=== PATIENT | female | born 1955 | race Asian ===

== ENCOUNTER 2017-08-17 17:26 | Observation (INO) | payer OTHER ==
[2017-08-17 17:26] VITALS: BP 146/70; PULSE 52; RESP 24; TEMP 98.3; O2SAT 99
[2017-08-17] MEDS ORDERED: SODIUM CHLOR 0.9% 1000 ML INJ 1,000 ML IV SCH (19:13)
[2017-08-17] MEDS ORDERED: ONDANSETRON HCL 4 MG/2 ML VIAL IVP ONE (19:15)
[2017-08-17] MEDS ORDERED: MORPHINE SULFATE 4 MG/ML INJ IV PUSH ONE ×2 (19:15→20:45)
--- NOTE | 2017-08-17 19:49 | PD ---
HPI Chief Complaint: Flank/Kidney Pain Time Seen by Provider: 18:53 Travel History International Travel<30 days: No Contact w/Intl Traveler<30days: No Traveled to known affect area: No History of Present Illness HPI 62-year-old female that presents to the ED for evaluation of right flank pain. Per patient she has a history of kidney stones and she was told about 3 months ago that she had multiple kidney stones on her right and left kidney. She passed a stone at the time and she has had no issues until today when she developed severe pain with nausea. She states that she has seen some blood in her urine. She denies any chest pain or shortness of breath. No actual vomiting. She denies any injuries. Per patient the pain came on all of a sudden. She states that he feels similar to her kidney stones. Patient speaks Mandarin but she comes with a friend who translates for her as well as interpreting services were use. Patient states her pain is severe 8 out of 10. States mainly on the right side but also points to the left upper abdomen. No bowel movement issues. PFSH Social History Alcohol Use: No Tobacco Use: No Substance Use: No Allergies-Medications (Allergen,Severity, Reaction): Coded Allergies: No Known Allergies (Unverified , 08/17/17) Reported Meds & Prescriptions Reported Meds & Active Scripts Active Active Prescriptions or Reported Medications Unobtainable Review of Systems Except as stated in HPI: all other systems reviewed are Neg Physical Exam Narrative GENERAL: SKIN: Warm and dry. HEAD: Atraumatic. Normocephalic. EYES: Pupils equal and round. No scleral icterus. No injection or drainage. ENT: No nasal bleeding or discharge. Mucous membranes pink and moist. Tongue is midline. No uvula deviation. NECK: Trachea midline. No JVD. CARDIOVASCULAR: Regular rate and rhythm. No murmurs, S3, S4. RESPIRATORY: No accessory muscle use. Clear to auscultation. Breath sounds equal bilaterally. GASTROINTESTINAL: Abdomen soft, non-tender, nondistended. Hepatic and splenic margins not palpable. MUSCULOSKELETAL: Extremities without clubbing, cyanosis, or edema. No obvious deformities. Patient has a possible pain on the right flank as well as the right upper abdomen. Also the right lower abdomen. Full range of motion of the upper and lower extremities bilaterally. 2+ pulses bilaterally. NEUROLOGICAL: Awake and alert. No obvious cranial nerve deficits. Motor grossly within normal limits. Five out of 5 muscle strength in the arms and legs. Normal speech. PSYCHIATRIC: Appropriate mood and affect; insight and judgment normal. Data Data Last Documented VS Vital Signs Date Time Temp Pulse Resp B/P (MAP) Pulse Ox O2 Delivery O2 Flow Rate FiO2 08/17/17 20:03 16 08/17/17 20:03 98 Room Air 08/17/17 17:26 98.3 52 Orders Orders Complete Blood Count With Diff (08/17/17 19:13) Comprehensive Metabolic Panel (08/17/17 19:13) Prothrombin Time / Inr (Pt) (08/17/17 19:13) Act Partial Throm Time (Ptt) (08/17/17 19:13) Lipase (08/17/17 19:13) Urinalysis - C+S If Indicated (08/17/17 19:13) Magnesium (Mg) (08/17/17 19:13) Ct Abd/Pel W/O Iv Contrast (08/17/17 ) Lactic Acid (08/17/17 19:13) Iv Access Insert/Monitor (08/17/17 19:13) Ecg Monitoring (08/17/17 19:13) Oximetry (08/17/17 19:13) Morphine Inj (Morphine Inj) (08/17/17 19:15) Ondansetron Inj (Zofran Inj) (08/17/17 19:15) Sodium Chlor 0.9% 1000 Ml Inj (Ns 1000 M (08/17/17 19:13) Morphine Inj (Morphine Inj) (08/17/17 20:45) Npo After Midnight W/ Po Meds (08/18/17 Breakfast) Abdomen, Kub Only (08/18/17 06:00) Tamsulosin (Flomax) (08/18/17 09:00) Strain Urine PRN (08/17/17 21:22) Ketorolac Inj (Toradol Inj) (08/18/17 00:00) Admit Order (Ed Use Only) (08/17/17 21:51) Labs Laboratory Tests Test 08/17/17 20:05 White Blood Count 12.8 TH/MM3 Red Blood Count 4.20 MIL/MM3 Hemoglobin 12.3 GM/DL Hematocrit 36.7 % Mean Corpuscular Volume 87.5 FL Mean Corpuscular Hemoglobin 29.4 PG Mean Corpuscular Hemoglobin Concent 33.6 % Red Cell Distribution Width 13.4 % Platelet Count 205 TH/MM3 Mean Platelet Volume 9.4 FL Neutrophils (%) (Auto) 81.4 % Lymphocytes (%) (Auto) 10.3 % Monocytes (%) (Auto) 6.5 % Eosinophils (%) (Auto) 1.4 % Basophils (%) (Auto) 0.4 % Neutrophils # (Auto) 10.4 TH/MM3 Lymphocytes # (Auto) 1.3 TH/MM3 Monocytes # (Auto) 0.8 TH/MM3 Eosinophils # (Auto) 0.2 TH/MM3 Basophils # (Auto) 0.0 TH/MM3 CBC Comment DIFF FINAL Differential Comment Prothrombin Time 10.7 SEC Prothromb Time International Ratio 1.0 RATIO Activated Partial Thromboplast Time 25.7 SEC Blood Urea Nitrogen 28 MG/DL Creatinine 0.93 MG/DL Random Glucose 120 MG/DL Total Protein 8.0 GM/DL Albumin 4.2 GM/DL Calcium Level 9.9 MG/DL Magnesium Level 2.2 MG/DL Alkaline Phosphatase 110 U/L Aspartate Amino Transf (AST/SGOT) 17 U/L Alanine Aminotransferase (ALT/SGPT) 34 U/L Total Bilirubin 0.3 MG/DL Sodium Level 141 MEQ/L Potassium Level 3.5 MEQ/L Chloride Level 108 MEQ/L Carbon Dioxide Level 23.8 MEQ/L Anion Gap 9 MEQ/L Estimat Glomerular Filtration Rate 61 ML/MIN Lactic Acid Level 1.4 mmol/L Lipase 131 U/L MDM Medical Decision Making Medical Screen Exam Complete: Yes Emergency Medical Condition: Yes Medical Record Reviewed: Yes Interpretation(s) CBC & BMP Diagram 08/17/17 20:05 Total Protein 8.0, Albumin 4.2, Calcium Level 9.9, Magnesium Level 2.2, Alkaline Phosphatase 110, Aspartate Amino Transf (AST/SGOT) 17, Alanine Aminotransferase (ALT/SGPT) 34, Total Bilirubin 0.3 Last Impressions Abdomen/Pelvis CT 08/17/17 0000 Signed Impressions: Service Date/Time: Thursday, August 17, 2017 19:45 - CONCLUSION: 1. Moderate left hydronephrosis and dilatation of the left ureter down to level of the mid pelvis at site of one or several adjacent calculi. 2. Tiny nonobstructing right renal calculi. Eber Bartlett MD Differential Diagnosis Kidney stone versus pyelonephritis versus abdominal pain versus obstruction versus sepsis versus nausea and vomiting Narrative Course 62-year-old female that presents to the ED for evaluation of right flank pain. Patient was properly examined and was found to have signs and symptoms which appear to be more consistent with kidney stone. She does have a history of kidney stones and was told that she had kidney stones or kidney 3 months ago that might give her issues. Per patient it feels similar. Patient only speaks Mandarin and has a friend who translates for her as well as cyber defense incident responder services were used. Patient was started IV, labs and imaging were ordered. Patient was given pain medications and IV fluids. Imaging and labs show a millimeter stone to the left kidney. Hydronephrosis noted as well. Patient does have a leukocytosis. Patient does have what appears to be elevated BUN likely secondary from the kidney stone. Case was discussed in my attending Dr. Beasley who recommends urology consult. I spoke with Dr. Blackwell who agrees that he will see the patient as a consult. Case discussed with Dr. Plaza who agrees to admission. Diagnosis Primary Impression: Kidney stone on left side Additional Impression: Hydronephrosis due to obstruction of ureter Admitting Information Admitting Physician Requests: Observation Scripts Unable to Obtain Active Prescriptions or Reported Meds Valdemar Mtz Aug 17, 2017 19:48
[2017-08-17 20:03] VITALS: RESP 16; O2SAT 98
--- NOTE | 2017-08-17 20:05 | RADRPT ---
EXAM DATE/TIME: 08/17/2017 19:45 [facility] COMPARISON: No previous studies available for comparison. INDICATIONS : Bilateral flank pain. ORAL CONTRAST: No oral contrast ingested. RADIATION DOSE: 3.46 CTDIvol (mGy) MEDICAL HISTORY : Renal calculi. SURGICAL HISTORY : None. ENCOUNTER: Initial ACUITY: 1 day PAIN SCALE: 8/10 LOCATION: Bilateral flank abdomen TECHNIQUE: Volumetric scanning of the abdomen and pelvis was performed. Using automated exposure control and ad justment of the mA and/or kV according to patient size, radiation dose was kept as low as reasonably achievable to obtain optimal diagnostic quality images. DICOM format image data is available electro nically for review and comparison. FINDINGS: LOWER LUNGS: The visualized lower lungs are clear. LIVER: Homogeneous density without lesion. There is no dilation of the biliary tree. No calcified gallston es. SPLEEN: Normal size without lesion. PANCREAS: Within normal limits. KIDNEYS: The right kidney is normal in size and shape with several tiny less than 1 mm calculi. The left kidne y is enlarged with moderate hydronephrosis and dilatation of the left ureter down to the level of the mid pelvis. There is mild surrounding inflammatory change. There are several apparent adjacent calcu li versus a lobular calcification. In aggregate this measures up to approximately 8 x 6 mm in greates t diameter. The right ureter is unremarkable. ADRENAL GLANDS: Within normal limits. VASCULAR: There is no aortic aneurysm. BOWEL/MESENTERY: The stomach, small bowel, and colon demonstrate no acute abnormality. There is no free intraperitone al air or fluid. ABDOMINAL WALL: Within normal limits. RETROPERITONEUM: There is no lymphadenopathy. BLADDER: No wall thickening or mass. REPRODUCTIVE: Within normal limits. INGUINAL: There is no lymphadenopathy or hernia. MUSCULOSKELETAL: Within normal limits for patient age. CONCLUSION: 1. Moderate left hydronephrosis and dilatation of the left ureter down to level of the mid pelvis at site of one or several adjacent calculi. 2. Tiny nonobstructing right renal calculi. Eber Bartlett MD on August 17, 2017 at 20:00 Board Certified Radiologist. This report was verified electronically.
[2017-08-17 20:41] LABS: APTT (PATIENT) 25.7 SEC (24.3-30.1); PROTHROMBIN TIME - PATIENT 10.7 SEC (9.8-11.6)
[2017-08-17 20:45] LABS: AUTOMATED NEUTROPHIL # 10.4 TH/MM3 (1.8-7.7); BASOPHIL % 0.4 % (0.0-2.0); EOSINOPHIL # 0.2 TH/MM3 (0-0.4); EOSINOPHIL % 1.4 % (0.0-4.0); HEMATOCRIT 36.7 % (35.0-46.0); HEMO FLAGS DIFF FINAL; LYMPH % 10.3 % (9.0-44.0); LYMPHOCYTE # 1.3 TH/MM3 (1.0-4.8); MEAN CELL VOLUME 87.5 FL (80.0-100.0); MEAN CORPUSCULAR HEMOGLOBIN 29.4 PG (27.0-34.0); MEAN CORPUSCULAR HGB CONC 33.6 % (32.0-36.0); MONO % 6.5 % (0.0-8.0); NEUT % 81.4 % (16.0-70.0); PLATELET COUNT 205 TH/MM3 (150-450); RED CELL DISTRIBUTION WIDTH 13.4 % (11.6-17.2); WHITE BLOOD COUNT 12.8 TH/MM3 (4.0-11.0)
[2017-08-17 21:06] LABS: ANION GAP 9 MEQ/L (5-15); AST (GOT) 17 U/L (15-37); BICARBONATE 23.8 MEQ/L (21.0-32.0); BLOOD UREA NITROGEN 28 MG/DL (7-18); CHLORIDE 108 MEQ/L (98-107); GLOMERULAR FILTRATION RATE 61 ML/MIN (>89); MAGNESIUM 2.2 MG/DL (1.5-2.5); POTASSIUM 3.5 MEQ/L (3.5-5.1); SODIUM (NA) 141 MEQ/L (136-145)
[2017-08-17 21:09] LABS: ALKALINE PHOSPHATASE 110 U/L (45-117); ALT (GPT) 34 U/L (10-53); TOTAL BILIRUBIN ADULT 0.3 MG/DL (0.2-1.0)
--- NOTE | 2017-08-17 22:13 | HHI.HP ---
HPI Service [facility] Hospitalists Primary Care Physician Ad Pearson MD Admission Diagnosis acute left kidney stone with hydronephrosis Chief Complaint: pain Travel History International Travel<30 Days: No Contact w/Intl Traveler <30 Da: No Traveled to Known Affected Are: No History of Present Illness Pt is 62 yo Mandarin speaking women who presents with severe abdomen and flank pain. She follows with dr Blackwell and has known kidney stones. She had CT a/p in ED and shows left hydroureter and distal stone or stones up to 8-10mm in size. Had some n/v. No fever or chills. We used multiple interpreting services to get history. Review of Systems Other abdomen and flank pain Past Family Social History Past Medical History remote heart attack and cva in [place] hx cecal surgery nephrolithiasis Reported Medications Denies prescribed meds uses various somali herbs. Allergies: Coded Allergies: No Known Allergies (Unverified , 08/17/17) Family History NC Social History no etoh/tob Physical Exam Vital Signs heart reg lung cta abd /snt ext no edema Vital Signs Date Time Temp Pulse Resp B/P (MAP) Pulse Ox O2 Delivery O2 Flow Rate FiO2 08/17/17 20:03 16 08/17/17 20:03 16 98 Room Air 08/17/17 17:26 98.3 52 24 146/70 (95) 99 Room Air Laboratory Laboratory Tests Test 08/17/17 20:05 White Blood Count 12.8 Red Blood Count 4.20 Hemoglobin 12.3 Hematocrit 36.7 Mean Corpuscular Volume 87.5 Mean Corpuscular Hemoglobin 29.4 Mean Corpuscular Hemoglobin Concent 33.6 Red Cell Distribution Width 13.4 Platelet Count 205 Mean Platelet Volume 9.4 Neutrophils (%) (Auto) 81.4 Lymphocytes (%) (Auto) 10.3 Monocytes (%) (Auto) 6.5 Eosinophils (%) (Auto) 1.4 Basophils (%) (Auto) 0.4 Neutrophils # (Auto) 10.4 Lymphocytes # (Auto) 1.3 Monocytes # (Auto) 0.8 Eosinophils # (Auto) 0.2 Basophils # (Auto) 0.0 CBC Comment DIFF FINAL Differential Comment Prothrombin Time 10.7 Prothromb Time International Ratio 1.0 Activated Partial Thromboplast Time 25.7 Blood Urea Nitrogen 28 Creatinine 0.93 Random Glucose 120 Total Protein 8.0 Albumin 4.2 Calcium Level 9.9 Magnesium Level 2.2 Alkaline Phosphatase 110 Aspartate Amino Transf (AST/SGOT) 17 Alanine Aminotransferase (ALT/SGPT) 34 Total Bilirubin 0.3 Sodium Level 141 Potassium Level 3.5 Chloride Level 108 Carbon Dioxide Level 23.8 Anion Gap 9 Estimat Glomerular Filtration Rate 61 Lactic Acid Level 1.4 Lipase 131 Result Diagram: 08/17/17200408/17/172004 Caprini VTE Risk Assessment Caprini VTE Risk Assessment: Mod/High Risk (score >= 2) Caprini Risk Assessment Model Point Value = 1 Point Value = 2 Point Value = 3 Point Value = 5 Age 41-60 Minor surgery BMI > 25 kg/m2 Swollen legs Varicose veins or History of unexplained or recurrent spontaneous Oral contraceptives or hormone replacement Sepsis (< 1 month) Serious lung disease, including pneumonia (< 1 month) Abnormal pulmonary function Acute myocardial infarction Congestive heart failure (< 1 month) History of inflammatory bowel disease Medical patient at bed rest Age 61-74 Arthroscopic surgery Major open surgery (> 45 min) Laparoscopic surgery (> 45 min) Malignancy Confined to bed (> 72 hours) Immobilizing plaster cast Central venous access Age >= 75 History of VTE Family history of VTE Factor V Leiden Prothrombin [id number] Lupus anticoagulant Anticardiolipin antibodies Elevated serum homocysteine Heparin-induced thrombocytopenia Other congenital or acquired thrombophilia Stroke (< 1 month) Elective arthroplasty Hip, pelvis, or leg fracture Acute spinal cord injury (< 1 month) Prophylaxis Regimen Total Risk Factor Score Risk Level Prophylaxis Regimen 0-1 Low Early ambulation 2 Moderate Order ONE of the following: *Sequential Compression Device (SCD) *Heparin 5000 units SQ BID 3-4 Higher Order ONE of the following medications: *Heparin 5000 units SQ TID *Enoxaparin/Lovenox 40 mg SQ daily (WT < 150 kg, CrCl > 30 mL/min) *Enoxaparin/Lovenox 30 mg SQ daily (WT < 150 kg, CrCl > 10-29 mL/min) *Enoxaparin/Lovenox 30 mg SQ BID (WT < 150 kg, CrCl > 30 mL/min) AND/OR *Sequential Compression Device (SCD) 5 or more Highest Order ONE of the following medications: *Heparin 5000 units SQ TID (Preferred with Epidurals) *Enoxaparin/Lovenox 40 mg SQ daily (WT < 150 kg, CrCl > 30 mL/min) *Enoxaparin/Lovenox 30 mg SQ daily (WT < 150 kg, CrCl > 10-29 mL/min) *Enoxaparin/Lovenox 30 mg SQ BID (WT < 150 kg, CrCl > 30 mL/min) AND *Sequential Compression Device (SCD) Assessment and Plan Problem List: (1) Kidney stone on left side ICD Codes: N20.0 - Calculus of kidney Status: Acute Plan: Pt with left sides nephrolithiasis and obstructing kidney stone(s) urology consulted. known to Dr Rishi vazquez toradol ivf plan for cysto tomorrow. (2) Hydronephrosis due to obstruction of ureter ICD Codes: N13.2 - Hydronephrosis with renal and ureteral calculous obstruction Status: Acute Valdez Estrada MD Aug 17, 2017 22:13
[2017-08-17] MEDS ORDERED: ONDANSETRON HCL 4 MG/2 ML VIAL IV PUSH PRN (22:30)
[2017-08-17] MEDS ORDERED: HYDROmorphone HCL PF 1 MG/ML VIAL IV PUSH PRN (22:30)
[2017-08-17 22:42] LABS: BLOOD, URINE LARGE (NEG); GLUCOSE,URINE NEG (NEG); KETONE, URINE NEG (NEG); MUCUS URINE FEW /lpf (OCC); NITRITE,URINE NEG (NEG); SQUAMOUS EPITHELIAL CELL URINE <1 /hpf (0-5); URINE COLOR YELLOW (YELLW/STRAW)
[2017-08-17 22:44] LABS: COMMENT (UR) CULT NOT INDICATED; CULTURE IF INDICATED CULT NOT INDICATED
[2017-08-17] MEDS: NS + KCL 20 MEQ INJ 1,000 ML IV SCH (23:21)
[2017-08-17 23:47] VITALS: BP 118/68; PULSE 48; RESP 16; TEMP 98.2; O2SAT 98
[2017-08-18] MEDS: KETOROLAC TROMETHAMINE 30 MG/ML (IVP) VIAL IV PUSH SCH ×2 (00:32→05:51)
--- NOTE | 2017-08-18 06:44 | RADRPT ---
EXAM DATE/TIME: 08/18/2017 05:36 [facility] COMPARISON: CT ABDOMEN & PELVIS W/O CONTRAST, August 17, 2017, 19:45. INDICATIONS : Bilateral renal stones. MEDICAL HISTORY : Renal calculi. SURGICAL HISTORY : None. ENCOUNTER: Subsequent ACUITY: 2 days PAIN SCORE: 6/10 LOCATION: Bilateral flank FINDINGS: No dilated loops of small large bowel. No calcification seen projected over either kidney or a long either flank. The 8mm aggregate of calcified stones seen on recent CT scan the superimposed upon the left sacrum; no calcification is seen in this area on conventional radiographs. CONCLUSION: 8mm aggregate of calcifications in the distal left ureter seen on prior CT are not discernible on tod ay's exam. Please note that the prior renal stones measured less than [address] and would not be ex pected to be discernible by conventional radiographs. Peter Kearney MD on August 18, 2017 at 6:37 Board Certified Radiologist. This report was verified electronically.
[2017-08-18] MEDS: NS + KCL 20 MEQ INJ 1,000 ML IV SCH ×2 (07:50→14:30)
[2017-08-18 08:57] VITALS: BP 114/65; PULSE 54; RESP 18; TEMP 98.1; O2SAT 97
[2017-08-18] MEDS ORDERED: TAMSULOSIN HCL 0.4 MG CAP PO SCH (09:00)
--- NOTE | 2017-08-18 09:03 | HHI.PR ---
Subjective Remarks Pts pain is better controlled with the Toradol Pt reportedly has not urinated much overnight or yet this morning. No nausea/vomiting Afebrile. Objective Vitals Vital Signs Date Time Temp Pulse Resp B/P (MAP) Pulse Ox O2 Delivery O2 Flow Rate FiO2 08/18/17 08:57 98.1 54 18 114/65 (81) 97 08/18/17 07:50 22 08/17/17 23:47 98.2 48 16 118/68 (85) 98 08/17/17 23:22 08/17/17 20:03 16 08/17/17 20:03 16 98 Room Air 08/17/17 17:26 98.3 52 24 146/70 (95) 99 Room Air Result Diagram: 08/17/17200408/17/172004 Other Results Laboratory Tests Test 08/17/17 20:05 08/17/17 21:25 White Blood Count 12.8 TH/MM3 Red Blood Count 4.20 MIL/MM3 Hemoglobin 12.3 GM/DL Hematocrit 36.7 % Mean Corpuscular Volume 87.5 FL Mean Corpuscular Hemoglobin 29.4 PG Mean Corpuscular Hemoglobin Concent 33.6 % Red Cell Distribution Width 13.4 % Platelet Count 205 TH/MM3 Mean Platelet Volume 9.4 FL Neutrophils (%) (Auto) 81.4 % Lymphocytes (%) (Auto) 10.3 % Monocytes (%) (Auto) 6.5 % Eosinophils (%) (Auto) 1.4 % Basophils (%) (Auto) 0.4 % Neutrophils # (Auto) 10.4 TH/MM3 Lymphocytes # (Auto) 1.3 TH/MM3 Monocytes # (Auto) 0.8 TH/MM3 Eosinophils # (Auto) 0.2 TH/MM3 Basophils # (Auto) 0.0 TH/MM3 CBC Comment DIFF FINAL Differential Comment Prothrombin Time 10.7 SEC Prothromb Time International Ratio 1.0 RATIO Activated Partial Thromboplast Time 25.7 SEC Blood Urea Nitrogen 28 MG/DL Creatinine 0.93 MG/DL Random Glucose 120 MG/DL Total Protein 8.0 GM/DL Albumin 4.2 GM/DL Calcium Level 9.9 MG/DL Magnesium Level 2.2 MG/DL Alkaline Phosphatase 110 U/L Aspartate Amino Transf (AST/SGOT) 17 U/L Alanine Aminotransferase (ALT/SGPT) 34 U/L Total Bilirubin 0.3 MG/DL Sodium Level 141 MEQ/L Potassium Level 3.5 MEQ/L Chloride Level 108 MEQ/L Carbon Dioxide Level 23.8 MEQ/L Anion Gap 9 MEQ/L Estimat Glomerular Filtration Rate 61 ML/MIN Lactic Acid Level 1.4 mmol/L Lipase 131 U/L Urine Color YELLOW Urine Turbidity HAZY Urine pH 6.0 Urine Specific [place] 1.017 Urine Protein 30 mg/dL Urine Glucose (UA) NEG mg/dL Urine Ketones NEG mg/dL Urine Occult Blood LARGE Urine Nitrite NEG Urine Bilirubin NEG Urine Urobilinogen LESS THAN 2.0 MG/DL Urine Leukocyte Esterase NEG Urine RBC 164 /hpf Urine WBC 6 /hpf Urine Squamous Epithelial Cells <1 /hpf Urine Mucus FEW /lpf Microscopic Urinalysis Comment CULT NOT INDICATED Imaging Last Impressions Abdomen X-Ray 08/18/17 0600 Signed Impressions: Service Date/Time: Friday, August 18, 2017 05:36 - CONCLUSION: 8mm aggregate of calcifications in the distal left ureter seen on prior CT are not discernible on today's exam. Please note that the prior renal stones measured less than [address] and would not be expected to be discernible by conventional radiographs. Peter Kearney MD Abdomen/Pelvis CT 08/17/17 0000 Signed Impressions: Service Date/Time: Thursday, August 17, 2017 19:45 - CONCLUSION: 1. Moderate left hydronephrosis and dilatation of the left ureter down to level of the mid pelvis at site of one or several adjacent calculi. 2. Tiny nonobstructing right renal calculi. Eber Bartlett MD Objective Remarks General: NAD, AAOx3 Chest: CTA Cardiac: Regular Abd: +Bs, soft mildly distended, mild RLQ tenderness Ext: No edema A/P Problem List: (1) Kidney stone on left side ICD Codes: N20.0 - Calculus of kidney Status: Acute Plan: - Pt is a 62 y/o [place] female who speaks only Mandarin. She presented with severe abdominal/flank pain, N/V. - CT Abd/pelvis (08/17) --> Moderate left hydronephrosis and dilatation of the left ureter down to level of the mid pelvis at site of one or several adjacent calculi. Tiny nonobstructing right renal calculi. - Pt is on IVF - Pain control with Toradol - Flomax - Await Urology consult, pt known to Dr Blackwell - Supportive care (2) Hydronephrosis due to obstruction of ureter ICD Codes: N13.2 - Hydronephrosis with renal and ureteral calculous obstruction Status: Acute Plan: - See above. Assessment and Plan Patient examined. Assessment and plan formulated with Sfoia Duong PA-C. I agree with the above. pain controlled. advance diet. discussed with dr Blackwell. attempt will be made to d/c home and pass the stone. d/c later today or AM if stable. pt/friend want dc today. Sofia Duong Aug 18, 2017 09:03 Valdez Estrada MD Aug 18, 2017 11:31
[2017-08-18 11:30] VITALS: BP 114/61; PULSE 55; RESP 18; TEMP 98; O2SAT 97
[2017-08-18] MEDS ORDERED: KETOROLAC TROMETHAMINE 10 MG TAB PO PRN (11:45)
[2017-08-18] MEDS ORDERED: oxyCODONE/ACETAMINOPHEN 5 MG/325 MG TAB PO PRN ×2 (11:45)
[2017-08-18 12:41] LABS: AUTOMATED NEUTROPHIL # 4.4 TH/MM3 (1.8-7.7); BASOPHIL # 0.1 TH/MM3 (0-0.2); BASOPHIL % 0.8 % (0.0-2.0); EOSINOPHIL # 0.2 TH/MM3 (0-0.4); EOSINOPHIL % 3.1 % (0.0-4.0); HEMATOCRIT 33.8 % (35.0-46.0); HEMO FLAGS DIFF FINAL; LYMPH % 28.2 % (9.0-44.0); MEAN CELL VOLUME 90.3 FL (80.0-100.0); MEAN CORPUSCULAR HEMOGLOBIN 30.3 PG (27.0-34.0); MEAN CORPUSCULAR HGB CONC 33.6 % (32.0-36.0); MONO % 6.9 % (0.0-8.0); PLATELET COUNT 171 TH/MM3 (150-450); RED BLOOD COUNT 3.74 MIL/MM3 (4.00-5.30); RED CELL DISTRIBUTION WIDTH 13.6 % (11.6-17.2); WHITE BLOOD COUNT 7.2 TH/MM3 (4.0-11.0)
[2017-08-18 12:46] VITALS: RESP 18
[2017-08-18 13:08] LABS: BICARBONATE 24.1 MEQ/L (21.0-32.0); POTASSIUM 3.6 MEQ/L (3.5-5.1)
--- NOTE | 2017-08-18 13:35 | MB ---
cc: CHARLIE COLES MD DATE OF CONSULTATION: 08/18/2017 REASON FOR CONSULTATION 1. Left flank pain. 2. Left ureteral calculi. HISTORY OF PRESENT ILLNESS The patient is a 62-year-old Mandarin speaking female who presented to the ER last night with severe left-sided flank pain, abdominal pain, approximately 8 out of 10 in nature. Denied nausea, vomiting, fevers, chills, dysuria or hematuria. She had a CT abdomen and pelvis without contrast in the ED done which showed 8 mm stone in her distal ureter causing left hydroureteronephrosis as well as several small stones in her left kidney. She is admitted for pain control and urology was consulted. She is a well-known patient of mine who I see in the office for her significant history of kidney stones. She recently had a metabolic workup which showed significant low urine volume of approximately less than 1/2 liter. She was given Toradol overnight and her pain has significantly subsided. She is currently lying comfortable in bed. REVIEW OF SYSTEMS See HPI, otherwise all systems reviewed otherwise negative. PAST MEDICAL HISTORY Significant for nephrolithiasis, history of stroke, heart attack. PAST SURGICAL HISTORY Colon surgery in the past. ALLERGIES NO KNOWN DRUG ALLERGIES. FAMILY HISTORY Denies urolithiasis or malignancies. SOCIAL HISTORY Denies alcohol, tobacco or illicit drugs. MEDICATIONS Home medications: None. PHYSICAL EXAMINATION VITAL SIGNS: Temperature 98, pulse 65, respiratory rate 18, BP 114/61, sating 97%. GENERAL: She is alert and oriented x 3, no apparent distress. Pleasant and cooperative lady who appears her stated age. She is lying comfortably in bed. HEENT: Head is normocephalic, atraumatic. Eyes: No scleral icterus. Extraocular muscles intact. NECK: Supple. Trachea is midline. No JVD. SKIN: No ulcers or rashes. Mucous membranes pink and moist. LUNGS: Clear to auscultation bilaterally. No wheezes, rales or rhonchi. HEART: Regular rhythm. No murmurs, gallops or rubs. ABDOMEN: Soft, nontender, nondistended. Positive bowel sounds. GENITOURINARY: No CVA tenderness bilaterally. RECTAL/PELVIC: Not indicated at this time. EXTREMITIES: Nontender. No clubbing, cyanosis, edema. PSYCHE: Flat affect. NEUROLOGIC: Cranial nerves II-XII intact. Strength is 5/5 in all four extremities. LABORATORY DATA White count 12.8, hemoglobin 12.3, hematocrit 36.7, platelet count 205, sodium 141, potassium 3.5, chloride 108, bicarb 23.8, BUN 28, creatinine 0.93. Her urine showed large blood and a few white blood cells. IMAGING STUDIES CT abdomen and pelvis without contrast images were reviewed and agree with radiologist's report. The patient has left-sided ureteral calculi in distal ureter causing mild hydronephrosis as well as some small stones in her left kidney. ASSESSMENT The patient is a 62-year-old female with significant history of kidney stones, admitted with left flank pain and was found to have obstructing left ureteral calculi. PLAN Since she is currently comfortable in bed and her vitals are stable, will recommend conservative management and a trial of passage, will start her on Flomax and oral pain medications. Will add Toradol orally for breakthrough pain. As long as her pain remains controlled with oral pain medications and she does not deteriorate, she can then be discharged home and follow up as an outpatient for definitive treatment. Thank you for this consult, please call with any questions. Charlie Coles MD EMJosé Miguel/BEENA /11:38 AM /1:17 PM
[2017-08-18] MEDS ORDERED: KETO10 PO (16:15)
[2017-08-18] MEDS ORDERED: TAMS5CAP PO (16:15)
--- NOTE | 2017-08-18 16:21 | HHI.DCPOC ---
Discharge Care Plan Diagnosis: (1) Kidney stone on left side (2) Hydronephrosis due to obstruction of ureter Goals to Promote Your Health - Followup with Dr. Blackwell in 7-10 days, call for an appt - Continue Flomax 0.4mg once daily to help with urine flow - Patient has been prescribed Toradol 10mg every 6 hours NEEDED for pain control - She needs to followup with her PCP, Dr. Pearson, in 1 week, call for an appt. Directions to Meet Your Goals Take your medications as prescribed Follow your dietary instruction Follow activity as directed Keep your appointments as scheduled Take your immunizations and boosters as scheduled If your symptoms worsen call your PCP, if no PCP go to Urgent Care Center or Emergency Room Smoking is Dangerous to Your Health. Avoid second hand smoke Call the 24-hour hour crisis hotline for domestic abuse at [facility] Aug 18, 2017 16:21
== END 2017-08-18 16:47 | disposition home or self-care (01) ==
LOC: NEPE 17:26 → NEDA 21:55 → NEPGCP 23:34
PROVIDERS: ADMIT Hospitalist; ATTEND Hospitalist
DX: N13.2 Hydronephrosis with renal and ureteral calculous obstruction (principal); D72.829 Elevated white blood cell count, unspecified; I25.2 Old myocardial infarction; Z86.73 Personal history of transient ischemic attack (TIA), and cerebral infarction without residual deficits
CPT/HCPCS: 74000; 74176; 80048; 80053; 81001; 83605; 83690; 83735; 85025; 85610; 85730; 96361; 96374; 96375; 96376; 99285; G0378; J1885; J2270; J2405; J3480; J7030